=== PATIENT | female | born 1965 | race Caucasian/White ===

== ENCOUNTER 2019-01-02 11:38 | Emergency (ER) | payer MEDICARE ==
[~2019-01-02] VITALS: Ht 167.6 cm; Wt 121.0 kg
[2019-01-02 12:08] VITALS: BP 140/84
[2019-01-02] MEDS ORDERED: DEXAMETHASONE 4 MG TABLET ONE (12:43)
--- NOTE | 2019-01-02 12:53 | NUR ---
Patient/Caregiver given discharge instructions and they have confirmed that they understand the instructions. Patient ambulatory with steady gait.
[2019-01-02] MEDS ORDERED: DEXAMETHASONE 4 MG/ML, 1ML PO ONE (13:00)
== END 2019-01-02 12:54 | disposition home or self-care (01) ==
LOC: ED 12:46
DX: B34.9 Viral infection, unspecified (principal); F32.9 Major depressive disorder, single episode, unspecified
CPT/HCPCS: 71046; 99283; J1100